=== PATIENT | male | born 1990 | race African-American/Black ===

== ENCOUNTER 2017-01-18 18:50 | Emergency (ER) | payer SELFPAY ==
[2017-01-18 20:21] LABS: CHLAMYDIA TRACH PCR NOT DETECTED (NOT DETEC); GC PCR NOT DETECTED (NOT DETECT); SOURCE: MALE URINE
== END 2017-01-18 19:47 | disposition home or self-care (01) ==
LOC: ER 18:50
PROVIDERS: Physician Assistant
DX: R36.9 Urethral discharge, unspecified (principal); I10 Essential (primary) hypertension; Z88.0 Allergy status to penicillin; Z88.5 Allergy status to narcotic agent; Z91.010 Allergy to peanuts
CPT/HCPCS: 87491; 87591; 96372; 99283; A9270-GY; J0696

== ENCOUNTER 2017-01-22 15:02 | Emergency (ER) | payer SELFPAY ==
[2017-01-22 14:25] LABS: ASCORBIC ACID (UR NOT ORDER) 40 (NEG); BILIRUBIN, URINE NEGATIVE (NEG); ER URINALYSIS TAT 0 Hrs 07 Mins; KETONE, URINE NEGATIVE (NEG); LEUKOCYTE ESTERASE(NOT OR NEG (NEG); NITRITE (URINE) NEG (NEG); WBC (NOT ORDERED) (RFLEX) 1 (0-5)
== END 2017-01-22 15:15 | disposition home or self-care (01) ==
LOC: ER 15:02
PROVIDERS: Nurse Practitioner
DX: N45.1 Epididymitis (principal); Z91.010 Allergy to peanuts; Z88.5 Allergy status to narcotic agent; Z88.8 Allergy status to other drugs, medicaments and biological substances; Z88.0 Allergy status to penicillin
CPT/HCPCS: 76870; 81001; 99284; A9270-GY